=== PATIENT | male | born 1970 | race Caucasian/White ===

== ENCOUNTER 2021-03-28 13:36 | Emergency (ER) | payer SELFPAY ==
[~2021-03-28] VITALS: Ht 172.7 cm; Wt 91.0 kg
[2021-03-28 13:44] VITALS: BP 114/71
[2021-03-28] MEDS ORDERED: LEVETIRACETAM 1000MG PREMIX 100 ML IV ONE (14:45)
== END 2021-03-28 15:13 | disposition left against medical advice (07) ==
LOC: ER 13:58
DX: R56.9 Unspecified convulsions (principal)
CPT/HCPCS: 71045; 93005; 99283